=== PATIENT | male | born 1950 | race Caucasian/White ===

== ENCOUNTER 2017-11-22 07:27 | Inpatient (IN) | payer MEDICARE, MEDICAID ==
[~2017-11-22] VITALS: Ht 170.2 cm; Wt 81.8 kg
--- NOTE | ~2017-11-22 | OP ---
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 POSTOPERATIVE DIAGNOSES: Disc herniation, osteophyte formation at C6-7, left. PROCEDURE: Anterior cervical discectomy and fusion with VIP anterior cervical plate, [place] plate and screws, PEEK interbody cage, Biocell bone stem cells at C6-C7, separate anterior cervical plate and screws. DESCRIPTION OF TECHNIQUE: After induction of general endotracheal anesthesia, the patient was positioned supine on the operating table. Neck was prepped and draped in usual sterile fashion. Fluoroscopic x-ray and [place] dissector localized the C6-C7 interspace. A transverse skin incision was carried out from the midline to the sternocleidomastoid muscle. The platysma was divided with Bovie cautery. Using blunt and sharp dissection and Metzenbaum scissors, I proceeded in an avascular plane medial to the carotid sheath. The C6-C7 interspace was identified with fluoroscopic x-ray and spinal needle. Self-retaining retractors were placed deep to the longus colli muscles. Rand distracting pins were placed in the body of the C6 and C7. The annulus was incised under distraction with an 11-blade. Using a series of curettes and pituitary rongeurs, disc material was moved from the C6-C7 interspace. The posterior longitudinal ligament was removed with Cloward rongeurs as well as osteophytes posteriorly. The dura was decompressed well. A PEEK interbody cage was placed in the disc space under distraction. Prior to this, it was filled with 1 cc of Biocell bone stem cell allograft. A 19 mm VIP anterior plate and screws from [employer] was used to span the C6-C7 interspace. Locking cams were tightened down over the screw heads. Good position of the hardware was confirmed with fluoroscopic x-ray. Meticulous hemostasis was maintained throughout the wound. The wound was irrigated with copious amounts of Ancef irrigant solution. The platysma and subdermal layer were closed with interrupted 3-0 Vicryl suture. The skin was reapproximated with Steri-Strips and benzoin. A sterile dressing was applied to the wound. The patient was awakened in good condition and taken to recovery. All counts were reported as correct. Estimated blood loss was minimal. TRANSINT:[id number] Voice Confirmation ID: [id number] DOCUMENT ID: [id number] JULIETA MAYES MD at 1318 CC: [id number] DICTATION DATE: 11/25/17 1037 [place] BEAD OPERATOR: 11/25/17 1336 DIS IN 11/23/17 [place] [id number]
[~2017-11-22 07:27] MED LIST: METOPROLOL TART50 MG PO; NITROSTAT0.4 MG SL; TRAZODONE HCL150 MG; TRAZODONE HCL150 MG PO; ZESTRIL40 MG PO
[2017-11-22 08:30] LABS: BASOPHILS 1.4 % (0-2); EOSINOPHILS 4.1 % (0-7); HEMATOCRIT 43.4 % (42.0-54.0); HEMOGLOBIN 14.6 g/dL (13.5-17.5); IMMATURE GRANULOCYTES 0.5 % (0-5); LYMPHOCYTES 17.1 % (15-50); MCH 31.4 pg (26.0-34.0); MCHC 33.6 g/dL (31.0-37.0); MCV 93.3 fL (80.0-100.0); MEAN PLATELET VOLUME 9.8 fL (7.4-10.4); MONOCYTES 8.1 % (2-11); NEUTROPHILS 68.8 % (40-80); PLATELET COUNT 175 10x3/uL (130-400); RBC 4.65 10x6/uL (4.20-6.10); RDW 12.7 % (11.5-14.5); WBC 5.7 10x3/uL (4.8-10.8)
[2017-11-22 08:39] LABS: APTT 36.9 SECONDS (22.8-39.4); PROTIME 12.8 SECONDS (11.6-15.0)
[2017-11-22 08:59] VITALS: BP 129/68; BMI 28.2
[2017-11-22 16:12] VITALS: BP 147/86
[2017-11-22 19:45] VITALS: BP 147/86; Ht 170.2 cm; Wt 81.8 kg
[2017-11-22 20:10] VITALS: BP 128/77
[2017-11-22 23:43] VITALS: BP 138/79
[2017-11-23 04:17] VITALS: BP 136/81
[2017-11-23 09:41] VITALS: BP 142/85
== END 2017-11-23 12:25 | disposition home or self-care (01) | DRG 473 ==
LOC: D.SDCHOLD 07:27 → D.MS 07:27 → D.SDCHOLD 09:30 → D.MS 16:01
PROVIDERS: Anesthesiology; Neurological Surgery
PROC: 0RB30ZZ Excision of Cervical Vertebral Disc, Open Approach (ICD-10-PCS; 2017-11-22)
PROC: 0RG10A0 Fusion of Cervical Vertebral Joint with Interbody Fusion Device, Anterior Approach, Anterior Column, Open Approach (ICD-10-PCS; principal; 2017-11-22 09:30)
DX: M50.223 Other cervical disc displacement at C6-C7 level (principal); M25.78 Osteophyte, vertebrae

== ENCOUNTER 2017-11-22 07:27 | Day surgery (SDC) | payer MEDICARE ==
[2017-11-22 19:45] VITALS: BMI 28.2
== END 2017-11-22 16:01 | disposition home or self-care (01) ==
LOC: D.OPS 07:27
DX: M50.223 Other cervical disc displacement at C6-C7 level (principal); M25.78 Osteophyte, vertebrae; I25.10 Atherosclerotic heart disease of native coronary artery without angina pectoris; I10 Essential (primary) hypertension; K21.9 Gastro-esophageal reflux disease without esophagitis; E03.9 Hypothyroidism, unspecified; Z01.812 Encounter for preprocedural laboratory examination